=== PATIENT | female | born 1940 | race Caucasian/White ===

== ENCOUNTER 2019-01-11 09:08 | Day surgery (SDC) | payer OTHER ==
[2019-01-09 11:55] VITALS: BMI 39.0
[2019-01-11 09:35] LABS: BASO % 0.7 % (0-2.0); EOS % 1.4 % (0-4.5); HEMATOCRIT 36.3 % (32.4-45.2); HEMOGLOBIN 12.1 GM/dL (10.7-15.3); LYMPH % 37.7 % (8-40); MCH 30.9 pg (25.7-33.7); MCHC 33.4 g/dl (32.0-36.0); MEAN CELL VOLUME 92.5 fl (80-96); MEAN PLT VOLUME 7.6 fl (7.5-11.1); MONO % 9.4 % (3.8-10.2); NEUT % 50.8 % (42.8-82.8); PLATELET COUNT 152 K/MM3 (134-434); RBC 3.93 M/mm3 (3.60-5.2); RDW 13.4 % (11.6-15.6); WHITE BLOOD COUNT 3.5 K/mm3 (4.0-10.0)
[2019-01-11 09:53] LABS: INR 1.02 (0.83-1.09)
[2019-01-11 15:37] VITALS: BP 130/65; PULSE 68; TEMP 98.1
--- NOTE | 2019-01-15 14:01 | PATH ---
Surgical Pathology Report Patient Name: MARIBETH DEVINE [facility]. Rec. #: [id number] /Age/Gender: 1940 (Age: 78) / F Account: [id number] Location: RADIOLOGY INTER Taken: 01/11/2019 Received: 01/11/2019 Reported: 01/15/2019 Physicians: Audrey Moya M.D. Specimen(s) Received RIGHT LUNG BIOPSY Clinical History Right upper lobe lesion Final Diagnosis LUNG, RIGHT, CT GUIDED CORE BIOPSY: ADENOCARCINOMA, MODERATELY DIFFERENTIATED, CONSISTENT WITH COLORECTAL ORIGIN. SEE COMMENT. Comment: Immunohistochemical stains performed and interpreted at [facility] show the tumor is positive for CK-20, while negative for CK-7 and TTF-1. Additional immunohistochemical stains performed at [place], [place] ([id number]) and interpreted at [facility] show the tumor is positive for CDX2 and SATB-2. Overall histomorphology and immunophenotype is consistent with colorectal origin. Multiple lung masses by imaging noted. Suggest clinical and radiologic correlation. Findings discussed with Dr. Guerrero. Positive and negative controls (internal if applicable) show appropriate results. Electronically Signed Maribeth Wood M.D. Gross Description Received in formalin labeled "right lung biopsy" are multiple cylindrical fragments of white-calv[place] soft tissue ranging in size from 0.2-0.7 cm in length and 0.1 cm in diameter. The specimen is filtered and entirely submitted in one cassette. MLSZ/01/11/2019 sanml/01/11/2019
== END 2019-01-11 15:35 | disposition home or self-care (01) ==
LOC: JRADIR 09:08
PROVIDERS: ATTEND Internal Medicine Hematology & Oncology
PROC: 0BBC3ZX Excision of Right Upper Lung Lobe, Percutaneous Approach, Diagnostic (ICD-10-PCS; principal; 2019-01-11)
DX: C34.11 Malignant neoplasm of upper lobe, right bronchus or lung (principal)
CPT/HCPCS: 32405; 36415; 71045-TC-FY; 82962; 85025; 85610; 88305-TC; 88341-TC; 88342-TC